=== PATIENT | male | born 1945 | race Caucasian/White ===

== ENCOUNTER → 2016-12-12 | Outpatient (CLI) | payer MEDICARE, BC | END | disposition short-term general hospital (02) | LOC: CLPULM 10:32 | DX: J44.9 Chronic obstructive pulmonary disease, unspecified (principal); R94.2 Abnormal results of pulmonary function studies; I10 Essential (primary) hypertension; I73.9 Peripheral vascular disease, unspecified; G47.33 Obstructive sleep apnea (adult) (pediatric); F32.9 Major depressive disorder, single episode, unspecified; E78.5 Hyperlipidemia, unspecified ==

== ENCOUNTER → 2017-01-08 | Outpatient (CLI) | payer MEDICARE, BC | END | disposition short-term general hospital (02) | LOC: CLONCO 09:28 | DX: C34.90 Malignant neoplasm of unspecified part of unspecified bronchus or lung (principal); D64.9 Anemia, unspecified; R53.83 Other fatigue ==

== ENCOUNTER → 2017-01-23 | Outpatient (CLI) | payer MEDICARE, BC | END | disposition short-term general hospital (02) | LOC: CLONCO 09:33 | DX: C34.91 Malignant neoplasm of unspecified part of right bronchus or lung (principal); R51 Headache; R53.83 Other fatigue; D64.9 Anemia, unspecified ==

== ENCOUNTER → 2017-03-05 | Outpatient (CLI) | payer MEDICARE, BC | END | disposition short-term general hospital (02) | LOC: CLONCO 08:48 | DX: C34.90 Malignant neoplasm of unspecified part of unspecified bronchus or lung (principal); C79.51 Secondary malignant neoplasm of bone; J44.9 Chronic obstructive pulmonary disease, unspecified; D64.9 Anemia, unspecified | CPT/HCPCS: J0897 ==

== ENCOUNTER → 2017-03-06 | Outpatient (CLI) | payer MEDICARE, BC | END | disposition short-term general hospital (02) | LOC: CLPULM 08:30 | DX: J44.9 Chronic obstructive pulmonary disease, unspecified (principal); C34.11 Malignant neoplasm of upper lobe, right bronchus or lung; C34.2 Malignant neoplasm of middle lobe, bronchus or lung; I73.9 Peripheral vascular disease, unspecified; G57.90 Unspecified mononeuropathy of unspecified lower limb; G47.33 Obstructive sleep apnea (adult) (pediatric); I10 Essential (primary) hypertension; M19.90 Unspecified osteoarthritis, unspecified site; F32.9 Major depressive disorder, single episode, unspecified; E78.5 Hyperlipidemia, unspecified; Z87.891 Personal history of nicotine dependence ==

== ENCOUNTER → 2017-03-27 | Outpatient (CLI) | payer MEDICARE, BC | END | disposition short-term general hospital (02) | LOC: CLONCO 05:01 | DX: C34.2 Malignant neoplasm of middle lobe, bronchus or lung (principal); Z79.899 Other long term (current) drug therapy ==

== ENCOUNTER → 2017-06-26 | Outpatient (CLI) | payer MEDICARE, BC | END | disposition short-term general hospital (02) | LOC: CLONCO 07:10 | DX: C34.2 Malignant neoplasm of middle lobe, bronchus or lung (principal); R31.9 Hematuria, unspecified ==